=== PATIENT | female | born 1970 | race Caucasian/White ===

== ENCOUNTER 2020-05-07 11:47 | Outpatient (CLI) | payer OTHER, SELFPAY ==
--- NOTE | ~2020-05-07 | MMUS_ITS ---
EXAMINATION: MM diagnostic ej BI w tawanda, US breast BI complete HISTORY: Follow-up bilateral breast masses TECHNIQUE: Additional 3-D tomosynthesis images of the breasts were performed and synthetic 2-D images were generated. CAD analysis was submitted and interpreted. High resolution bilateral breast ultraso und was performed. COMPARISON: Comparison to multiple prior studies sequentially, with oldest reviewed study dated 10/20. BREAST PARENCHYMAL COMPOSITION: BREAST PARENCHYMAL COMPOSITION: The breasts are extremely dense, which lowers the sensitivity of mamm ography. FINDINGS: MAMMOGRAPHIC FINDINGS: There are multiple bilateral breast masses which are obscured by dense fibroglandular tissue. There a re multiple surgical clips in both breasts consistent with previous benign biopsies. ULTRASOUND: Bilateral breast ultrasound: There are multiple benign bilateral breast masses, most of which are sim ple and/or complicated cyst, largest on the right measures 2.9 cm a 11-12:00 and largest on the left measures 3.5 cm at 11:00. IMPRESSION: 1. Multiple benign-appearing bilateral breast masses. No evidence for malignancy. 2. Routine yearly screening mammogram and regular clinical breast examination are recommended. BI-RADS Category 2: Benign finding(s). Reviewed, dictated and finalized at location A. IMPRESSION: 1. Multiple benign-appearing bilateral breast masses. No evidence for malignanc y. 2. Routine yearly screening mammogram and regular clinical breast examination a re recommended. BI-RADS Category 2: Benign finding(s).
== END 2020-05-07 11:48 | disposition home or self-care (01) ==
LOC: ANHIMG 11:49
PROVIDERS: PCP Family Medicine; Visit Provider Nurse Practitioner Obstetrics & Gynecology
DX: N63.0 Unspecified lump in unspecified breast (principal)
CPT/HCPCS: 76641; 77062; 77066; G0279

== ENCOUNTER 2020-06-30 00:59 | Outpatient (CLI) | payer OTHER, SELFPAY ==
[2020-06-30 19:19] LABS: SARS-CoV-2 RNA PCR Negative
== END 2020-06-30 01:00 | disposition home or self-care (01) ==
LOC: ANHCOVIDDT 00:59
PROVIDERS: PCP Family Medicine; Visit Provider Internal Medicine Gastroenterology
DX: Z01.812 Encounter for preprocedural laboratory examination (principal); Z20.828 Contact with and (suspected) exposure to other viral communicable diseases
CPT/HCPCS: 87635; C9803; U0003

== ENCOUNTER 2020-07-02 00:05 | Day surgery (SDC) | payer OTHER, SELFPAY ==
[2020-06-25 14:35] VITALS: BMI 20.9
--- NOTE | 2020-07-01 16:54 | WPDANESEPP ---
Anes - Eval Pre Procedure Procedure: Operation Date: 07/02/20 07:30 Proposed Procedures p Screening Colonoscopy - Yang Tsang MD Date/Time: 07/01/20 16:54 Pre Op Diagnosis: neoplasm Screening Patient Data Age: 50 Gender: F Height: 5 ft 6 in Weight: 59 kg Allergies Allergy/AdvReac Type Severity Reaction Status Date / Time No Known Allergies Allergy Unverified 11/30/14 12:50 Home Medications Medication Instructions Recorded Confirmed Type No Home Medications 06/25/20 06/25/20 History Patient hx anesthesia problems: none Family hx anesthesia problems: none PMFSH Surgical History Surgical History Previous section Social History Social History Smoking status: Never smoker Substance use type: does not use Gender identity (if verbalized by the patient): Female Spiritual care concerns: No Exam Day of Procedure 07/01/20 16:54
[2020-07-02 06:29] VITALS: BP 110/50; PULSE 77; RESP 18; TEMP 36.9; O2SAT 100
[2020-07-02] MEDS: LACTATED RINGERS 1,000 ML 150 ML IV CONT (06:47)
--- NOTE | 2020-07-02 07:11 | WPDANESEPPF ---
Anes - Initial Pre Proc Eval Procedure: Operation Date: 07/02/20 07:30 Proposed Procedures p Screening Colonoscopy - Yang Tsang MD Date/Time: 07/02/20 07:11 Surgeon: Yang Tsang MD Pre Op Diagnosis: neoplasm Screening Patient Data Age: 50 Gender: F Height: 5 ft 6 in Weight: 59 kg Last Vital Signs Temp 98.5 F 07/02/20 06:29 Pulse 77 07/02/20 06:29 Resp 18 07/02/20 06:29 BP 110/50 L 07/02/20 06:29 Pulse Ox 100 07/02/20 06:29 Allergies Allergy/AdvReac Type Severity Reaction Status Date / Time No Known Allergies Allergy Unverified 07/02/20 06:23 Home Medications Medication Instructions Recorded Confirmed Type No Home Medications 06/25/20 06/25/20 History Patient hx anesthesia problems: none Family hx anesthesia problems: none PMFSH Past Medical History Medical History (Updated 07/02/20 @ 07:11 by Abdelrahman Nolan MD) Healthy adult Surgical History Surgical History Previous section Social History Social History Smoking status: Never smoker Substance use type: does not use Living arrangements: with family Gender identity (if verbalized by the patient): Female Sexual Orientation (if Verbalized by the Patient): Straight or Heterosexual Spiritual care concerns: No Anes - Eval Final PreProcedure Day of Procedure 07/02/20 07:11 Patient weight: normal Heart: regular rate and rhythm Lungs: clear to auscultation Airway: Mallampati scale class II Neurological: alert and oriented Last oral intake: >/= 8 hours ASA classification: I Emergent: no Anesthetic plan: proceed Anesthesia type and monitoring: general GIVS and standard monitoring Informed Consent: The patient's anesthetic plan and its attendant risks and benefits were discussed with the patient/family/POA. Questions were solicited and answers provided to the satisfaction of the patient/family/POA.
--- NOTE | 2020-07-02 07:29 | P.CONGI_ITS ---
Assessment and Plan Assessment and plan (1) Encounter for screening colonoscopy: Code(s): Z12.11 - Encounter for screening for malignant neoplasm of colon Status: Acute Additional Plan Patient presents for screening colonoscopy. She appears to be at average risk for colon polyps. Further recommendations will be given after endoscopy. GI Consult Note Consult date/time: 07/02/20 07:29 HPI: Sharyn Saini is a 50 year old female Seen in evaluation at the request of Dr.Eric Lee. patient presents for neoplasia screening. Her current weight appetite bowel movements are normal. She denies abdominal pain. She has had no blood in her stools. There is no family history of colon or rectal di sease. Review of Systems Review of Systems: All systems reviewed & are unremarkable except as noted in HPI and below PMFSH Past Medical History Medical History (Updated 07/02/20 @ 07:30 by Yang Tsang MD) Healthy adult Surgical History Surgical History Previous section Social History Social History Smoking status: Never smoker Substance use type: does not use Living arrangements: with family Gender identity (if verbalized by the patient): Female Sexual Orientation (if Verbalized by the Patient): Straight or Heterosexual Spiritual care concerns: No Meds Home Medications and Allergies Home Medications Medication Instructions Recorded Confirmed Type No Home Medications 06/25/20 06/25/20 History Allergies Allergy/AdvReac Type Severity Reaction Status Date / Time No Known Allergies Allergy Unverified 07/02/20 06:23 Vital Signs Vital Signs - 24 hr 07/02/20 06:29 Temperature 98.5 F Pulse Rate 77 Respiratory Rate 18 Blood Pressure 110/50 L Pulse Oximetry 100 Exam Narrative: Exam Narrative: Physical exam reveals Vital Signs to be stable. HEENT exam unremarkable. She is anicteric. Lungs are clear to auscultation and percussion. Heart is without murmur or extra sounds. Abdominal exam bowel sounds are present soft nontender with no organomegaly. Digital external rectal exam is normal.
[2020-07-02 07:50] VITALS: BP 83/36; PULSE 65; RESP 16; O2SAT 100
[2020-07-02 08:00] VITALS: BP 84/43; PULSE 59; RESP 16; O2SAT 100
[2020-07-02 08:10] VITALS: BP 89/43; PULSE 63; RESP 16; O2SAT 100
[2020-07-02 08:20] VITALS: BP 98/51; PULSE 73; RESP 18; O2SAT 100
== END 2020-07-02 08:31 | disposition home or self-care (01) ==
PROVIDERS: PCP Family Medicine; Visit Provider Internal Medicine Gastroenterology
PROC: 0DJD8ZZ Inspection of Lower Intestinal Tract, Via Natural or Artificial Opening Endoscopic (ICD-10-PCS; CPT 45378; principal; 2020-07-02 07:30)
DX: Z12.11 Encounter for screening for malignant neoplasm of colon (principal)
CPT/HCPCS: 45378; J2001; J2704; J7120

== ENCOUNTER 2023-04-03 03:52 | Day surgery (SDC) | payer OTHER, SELFPAY ==
[2023-03-26 12:43] VITALS: BMI 17.7
--- NOTE | 2023-03-26 12:45 | PC.NURSE ---
Report to the Outpatient Waiting Room, entrance under the green pavilion located off [facility], at time 0630 on date 04/03/23. Planned Procedure Time: 0830. Time changes happen often and if your time is changed the preop area will call you the afternoon before. - You and your visitor will be asked to self-screen and do not enter if you have any COVID symptoms. - A mask is optional within the hospital at this time. Patients may have clear liquids (water, carbonated beverages, clear teas, apple juice) until 3 hours prior to surgery with a maximum of 20 ounces. - No food from midnight until time of surgery Take the following medications with a SIP of water the morning of surgery: NONE DO NOT STOP ANY OF YOUR OTHER PRESCRIPTION MEDICATIONS PRIOR TO SURGERY ?EXCEPT THE FOLLOWING Medications to discontinue per physician: VITAMINS/SUPPLEMENTS Date to take last dose: 03/30/23 Please no make-up, nail lao, hairspray, perfume, deodorant, or body powder the day of surgery. No jewelry (including any body piercings) or valuables the day of surgery, leave them at home. Please take a shower or bath the night before, or the morning of, surgery with an antibacterial soap. Wear comfortable, loose fitting clothing. - Jewelry must be removed prior to entering the operating room. Rings and piercings that are not removed may be cut off. - The hospital will not accept responsibility for valuables. - Please leave all valuables, including medications, at home the day of surgery. If you are going home after surgery, a licensed bus driver/monitor must drive you home. - NO public transportation without another adult if you receive anesthesia. - We recommend that an adult stay with you for 24 hours following discharge. - We also recommend that you do not drive, make important decision, drink alcoholic beverages, or take any drugs that were not prescribed by your health care provider for at least 24 hours after your discharge time. Follow any additional instructions given to you from your surgeon. If you or anyone in your household have experienced Covid symptoms in the past week, please notify your surgeon or the nurse liaison at the phone number below for possible testing. Telephone instructions given to PT - LUIS ROWLEY and asked if any additional questions and then verbalized understanding. Patient advised to call surgeon office or pre surgery nurse liaison [phone] if any additional questions.
[2023-04-03 06:35] VITALS: BP 106/64; PULSE 69; RESP 20; TEMP 36.6; O2SAT 100
[2023-04-03] MEDS: ACETAMINOPHEN 500 MG TABLET 1000 MG PO (06:56)
[2023-04-03] MEDS: LACTATED RINGERS 1,000 ML 30 ML IV CONT ×2 (07:00→09:16)
--- NOTE | 2023-04-03 07:17 | P.PNAN_ITS ---
Anes - Initial Pre Proc Eval Procedure: Operation Date: 04/03/23 08:30 Proposed Procedures p Hysteroscopy Dilation and Curettage - Shaquille Tijerina MD Date/Time: 04/03/23 07:17 Surgeon: Shaquille Tijerina MD Pre Op Diagnosis: Abnormal Uterine Bleeding Patient Data Age: 52 Gender: F Height: 1.68 m Weight: 51.7 kg Last Vital Signs Temp 36.6 C 04/03/23 06:35 Pulse 69 04/03/23 06:35 Resp 20 04/03/23 06:35 BP 106/64 04/03/23 06:35 Pulse Ox 100 04/03/23 06:35 O2 Del Method Room Air 04/03/23 06:35 Allergies Allergy/AdvReac Type Severity Reaction Status Date / Time No Known Allergies Allergy Unverified 04/03/23 06:39 Home Medications Medication Instructions Recorded Confirmed Type cholecalciferol (vitamin D3) 25 25 mcg PO DAILY 02/20/23 04/03/23 History mcg (1,000 unit) capsule ferrous sulfate 325 mg (65 mg 325 mg PO DAILY 02/20/23 04/03/23 History iron) tablet Patient hx anesthesia problems: none Family hx anesthesia problems: none Results Review: All pre-operative results and documents have been reviewed as part of the pre- operative evaluation. [facility] Past Medical History Medical History Encounter for general adult medical examination without abnormal findings Encounter for screening colonoscopy Encounter for screening for lipoid disorders Healthy adult Iron deficiency anemia, unspecified Surgical History Surgical History Previous section Social History Social History Smoking status: Never smoker Alcohol intake: never Substance use: never Substance use type: does not use Living arrangements: with family Gender identity (if verbalized by the patient): Female Sexual Orientation (if Verbalized by the Patient): Straight or Heterosexual Spiritual care concerns: No Anes - Eval Final PreProcedure Day of Procedure 04/03/23 07:17 Patient weight: normal Heart: regular rate and rhythm Lungs: clear to auscultation Airway: Mallampati scale class 1 Neurological: alert and oriented Last oral intake: >/= 8 hours ASA classification: I Emergent: no Anesthetic plan: proceed Anesthesia type and monitoring: general GIVS and standard monitoring Results Review: All pre-operative results and documents have been reviewed as part of the pre- operative evaluation. Informed Consent: The patient's anesthetic plan and its attendant risks and benefits were discussed with the patient/family/POA. Questions were solicited and answers provided to the satisfaction of the patient/family/POA.
--- NOTE | 2023-04-03 07:22 | WPDANESEPPF ---
Anes - Initial Pre Proc Eval Procedure: Operation Date: 04/03/23 08:30 Proposed Procedures p Hysteroscopy Dilation and Curettage - Shaquille Tijerina MD Date/Time: 04/03/23 07:22 Surgeon: Shaquille Tijerina MD Pre Op Diagnosis: Abnormal Uterine Bleeding Patient Data Age: 52 Gender: F Height: 1.68 m Weight: 51.7 kg Last Vital Signs Temp 97.8 F 04/03/23 06:35 Pulse 69 04/03/23 06:35 Resp 20 04/03/23 06:35 BP 106/64 04/03/23 06:35 Pulse Ox 100 04/03/23 06:35 O2 Del Method Room Air 04/03/23 06:35 Allergies Allergy/AdvReac Type Severity Reaction Status Date / Time No Known Allergies Allergy Unverified 04/03/23 06:39 Home Medications Medication Instructions Recorded Confirmed Type cholecalciferol (vitamin D3) 25 25 mcg PO DAILY 02/20/23 04/03/23 History mcg (1,000 unit) capsule ferrous sulfate 325 mg (65 mg 325 mg PO DAILY 02/20/23 04/03/23 History iron) tablet Patient hx anesthesia problems: none Family hx anesthesia problems: none Results Review: All pre-operative results and documents have been reviewed as part of the pre-operative evaluation. [facility] Past Medical History Medical History Encounter for general adult medical examination without abnormal findings Encounter for screening colonoscopy Encounter for screening for lipoid disorders Healthy adult Iron deficiency anemia, unspecified Surgical History Surgical History Previous section Social History Social History Smoking status: Never smoker Alcohol intake: never Substance use: never Substance use type: does not use Living arrangements: with family Gender identity (if verbalized by the patient): Female Sexual Orientation (if Verbalized by the Patient): Straight or Heterosexual Spiritual care concerns: No Anes - Eval Final PreProcedure Day of Procedure 04/03/23 07:22 Patient weight: normal Heart: regular rate and rhythm Lungs: clear to auscultation Airway: Mallampati scale class II Neurological: alert and oriented Last oral intake: >/= 8 hours ASA classification: II Emergent: no Anesthetic plan: proceed Results Review: All pre-operative results and documents have been reviewed as part of the pre-operative evaluation. Informed Consent: The patient's anesthetic plan and its attendant risks and benefits were discussed with the patient/family/POA. Questions were solicited and answers provided to the satisfaction of the patient/family/POA.
--- NOTE | 2023-04-03 08:10 | WPDHPUPDATE1 ---
History and Physical Update Update Date/Time: 04/03/23 08:10 History and Physical has been reviewed, including an updated exam of the patient. There are NO changes in the patient's condition. Risks, benefits, and alternatives have been discussed and questions answered. Patient agrees to proceed with procedure.
[2023-04-03] MEDS: LIDOCAINE HCL 1% LOCAL INJ 20 ML VIAL 10 ML INFILTRATE (08:58)
[2023-04-03] MEDS: KETOROLAC 30 MG/ML VIAL (*BKC) IV PUSH (09:08)
[2023-04-03 09:20] VITALS: BP 89/53; PULSE 45; RESP 12; O2SAT 100
[2023-04-03 09:50] VITALS: BP 95/62; PULSE 54; RESP 16
--- NOTE | 2023-04-04 09:10 | W.PM.PROC2 ---
Procedure Note - Detailed Date of Procedure 04/04/23 Pre-op Diagnosis Abnormal Uterine Bleeding Post-op Diagnosis Same Procedure Performed Hysteroscopy D&C Surgeon Shaquille Tijerina MD Anesthesia MAC Indications abnormal uterine bleeding Findings Normal vulva, vagina, and cervix. Normal endometrial cavity Description of Procedure the patient was taken the operating room. She was prepped and draped in the dorsal lithotomy position after induction of mac anesthesia. A speculum was placed in the vagina. The cervix was grasped with a tenaculum. The cervix was dilated about 1 cm. The hysteroscope was inserted. The intrauterine cavity and endocervix were evaluated. Hysteroscope was withdrawn. A medium-size curette was used to curettage all the surfaces were within the endometrial cavity. the sample was collected on Telfa and sent to pathology. The hysteroscope was reinserted and the above findings were noted. Patient tolerated the procedure well. The speculum and tenaculum were removed. She was taken recovery room in stable condition. Sponge lap and needle counts were correct x2. Estimated Blood Loss 40 Drains No Packing No Pathology Yes Complications No immediate complications Condition Stable Disposition PACU
== END 2023-04-03 10:18 | disposition home or self-care (01) ==
PROVIDERS: PCP Family Medicine; Visit Provider Obstetrics & Gynecology
PROC: 0U5B8ZZ Destruction of Endometrium, Via Natural or Artificial Opening Endoscopic (ICD-10-PCS; CPT 58563; principal; 2023-04-03 08:30)
DX: N93.9 Abnormal uterine and vaginal bleeding, unspecified (principal); N84.0 Polyp of corpus uteri; D50.9 Iron deficiency anemia, unspecified
CPT/HCPCS: 58558; 88305; A9270; J1100; J1885; J2250; J2405; J2704; J3010; J7120

== ENCOUNTER 2023-05-01 00:38 | Day surgery (SDC) | payer OTHER, SELFPAY ==
--- NOTE | 2023-04-20 15:00 | PC.NURSE ---
Report to the Outpatient Waiting Room, entrance under the green pavilion located off [facility], at time 0900 on date 05/01/23. Planned Procedure Time: 1100. Time changes happen often and if your time is changed the preop area will call you the afternoon before. - You and your visitor will be asked to self-screen and do not enter if you have any COVID symptoms. - A mask is optional within the hospital at this time. Patients may have clear liquids (water, carbonated beverages, clear teas, apple juice) until 3 hours prior to surgery with a maximum of 20 ounces. - No food from midnight until time of surgery Take the following medications with a SIP of water the morning of surgery: NONE DO NOT STOP ANY OF YOUR OTHER PRESCRIPTION MEDICATIONS PRIOR TO SURGERY ?EXCEPT THE FOLLOWING Medications to discontinue per physician: VITAMINS/SUPPLEMENTS Date to take last dose: 04/27/23 Please no make-up, nail [place], hairspray, perfume, deodorant, or body powder the day of surgery. No jewelry (including any body piercings) or valuables the day of surgery, leave them at home. Please take a shower or bath the night before, or the morning of, surgery with an antibacterial soap. Wear comfortable, loose fitting clothing. - Jewelry must be removed prior to entering the operating room. Rings and piercings that are not removed may be cut off. - The hospital will not accept responsibility for valuables. - Please leave all valuables, including medications, at home the day of surgery. If you are going home after surgery, a licensed recycler forklift driver truck driver must drive you home. - NO public transportation without another adult if you receive anesthesia. - We recommend that an adult stay with you for 24 hours following discharge. - We also recommend that you do not drive, make important decision, drink alcoholic beverages, or take any drugs that were not prescribed by your health care provider for at least 24 hours after your discharge time. Follow any additional instructions given to you from your surgeon. If you or anyone in your household have experienced Covid symptoms in the past week, please notify your surgeon or the nurse liaison at the phone number below for possible testing. Telephone instructions given to PT - LUIS ROWLEY and asked if any additional questions and then verbalized understanding. Patient advised to call surgeon office or pre surgery nurse liaison [phone] if any additional questions.
[2023-04-20 15:03] VITALS: BMI 18.3
[2023-05-01] VITALS (8 sets, daily range): BP systolic 83–102; BP diastolic 50–61; PULSE 46–77; RESP 12–20; TEMP 36.2–36.7; O2SAT 99–100
--- NOTE | 2023-05-01 08:09 | P.PNAN_ITS ---
Anes - Eval Pre Procedure Procedure: Operation Date: 05/01/23 10:00 Proposed Procedures p Hysteroscopy with Rose Mary Endometrial Ablation - Shaquille Tijerina MD Date/Time: 05/01/23 08:09 Surgeon: Dr. Tijerina Pre Op Diagnosis: Menorrhagia Patient Data Age: 52 Gender: F Height: 1.68 m Weight: 51.7 kg Allergies Allergy/AdvReac Type Severity Reaction Status Date / Time No Known Allergies Allergy Unverified 04/20/23 15:00 Home Medications Medication Instructions Recorded Confirmed Type cholecalciferol (vitamin D3) 25 25 mcg PO DAILY 02/20/23 04/20/23 History mcg (1,000 unit) capsule ferrous sulfate 325 mg (65 mg 325 mg PO DAILY 02/20/23 04/20/23 History iron) tablet Patient hx anesthesia problems: none Family hx anesthesia problems: none Results Review: All pre-operative results and documents have been reviewed as part of the pre- operative evaluation. [facility] Past Medical History Medical History Encounter for general adult medical examination without abnormal findings Encounter for screening colonoscopy Encounter for screening for lipoid disorders Healthy adult Iron deficiency anemia, unspecified Surgical History Surgical History Previous section Social History Social History Smoking status: Never smoker Alcohol intake: never Substance use: never Substance use type: does not use Living arrangements: with family Gender identity (if verbalized by the patient): Female Sexual Orientation (if Verbalized by the Patient): Straight or Heterosexual Spiritual care concerns: No Exam Day of Procedure 05/01/23 08:09
[2023-05-01] MEDS: ACETAMINOPHEN 500 MG TABLET 1000 MG PO (09:26)
[2023-05-01] MEDS: LACTATED RINGERS 1,000 ML 30 ML IV CONT ×2 (09:31→10:55)
[2023-05-01 09:33] LABS: Hematocrit 32.9 % (37.0-47.0); Hemoglobin 9.9 g/dL (12.0-15.0)
--- NOTE | 2023-05-01 09:38 | P.PNAN_ITS ---
Anes - Eval Final PreProcedure Day of Procedure 05/01/23 09:38 Patient weight: normal Heart: regular rate and rhythm Lungs: clear to auscultation and normal air movement Airway: Mallampati scale class II Neurological: alert and oriented Last oral intake: >/= 8 hours ASA classification: II Emergent: no Anesthetic plan: proceed Anesthesia type and monitoring: general GIVS and standard monitoring Results Review: All pre-operative results and documents have been reviewed as part of the pre- operative evaluation. Informed Consent: The patient's anesthetic plan and its attendant risks and benefits were discussed with the patient/family/POA. Questions were solicited and answers provided to the satisfaction of the patient/family/POA.
--- NOTE | 2023-05-01 09:41 | WPDHPUPDATE1 ---
History and Physical Update Update Date/Time: 05/01/23 09:41 History and Physical has been reviewed, including an updated exam of the patient. There are NO changes in the patient's condition. Risks, benefits, and alternatives have been discussed and questions answered. Patient agrees to proceed with procedure.
--- NOTE | 2023-05-01 11:01 | P.OP_ITS ---
Procedure Note - Detailed Date of Procedure 05/01/23 Pre-op Diagnosis Menorrhagia Post-op Diagnosis Same Procedure Performed endometrial ablation with hysteroscopy d&c, diagnostic laparoscopy Surgeon Shaquille Tijerina MD Anesthesia MAC Indications Severe menorrhagia Findings Normal vulva vagina and cervix. Normal endometrium. narrow uterine cavity, diagnostic laparoscopy findings- enlarged fibroid uterus, endometriosis, scarring throughout the pelvis Description of Procedure The patient was taken to the operating room. She was prepped and draped in the dorsal lithotomy position after induction of mac anesthesia. A speculum was placed in the vagina. Cervix grasped with a tenaculum. The cervix was dilated to about 1 cm. The hysteroscope was inserted. The above findings were noted. Endometrial curettage was performed with a medium-size curette. All surfaces of the endometrium were affected by the curettage. The specimens were collected and sent to pathology. Measurements were taken of the uterus and cervix. The uterine length was then entered into the hand piece of the Rose Mary device. The device was inserted into the intrauterine cavity. The array of the device was expanded. The balloon cuff was inflated. A good seal was achieved. The energy and safety cycles were initiated and completed. The array was collapsed and the instrument was withdrawn after deflating the balloon cuff. Hysteroscope was reinserted. the endometrium was only partially treated. The right side was treated well without any on the left side. The array was reinserted an applied to the left side for approximately 1 minute of an energy cycle. Versus the usual 2 minute cycle. The instrument was withdrawn. Hysteroscope was inserted. Some of the muscularis could be visualized. Was not holding fluid well. There was concern about perforation and bowel injury. Hysteroscope was removed. Speculum was removed. [place] Diagnostic laparoscopy was performed - The patient was taken to the operating r oom. She was prepped and draped in the dorsal lithotomy position after induction general anesthesia. A 5 mm incision was made with a scalpel on the abdominal skin in the left upper quadrant of the abdomen. A 5 mm trocar was inserted into the intra-abdominal cavity under direct visualization the scope. In the same fashion a 5 mm left lower quadrant trocar was inserted and a 5 mm infraumbilical trocar was inserted. The pelvis was inspected. There were no injuries visualized. The rectum and bowel appeared normal. There were no perforation of the uterus. The pneumoperitoneum was reduced. The trocars were removed. Skin was closed with subcuticular 4 micro. The patient's incisions were covered with Dermabond. She was taken recovery room in stable condition. Sponge lap and needle counts were correct x2. Above findings were noted. The hysteroscope was removed. The patient tolerated the procedure well. The speculum and tenaculum were removed. She was taken to recovery in stable condition. Sponge lap and needle counts were correct x2. Estimated Blood Loss 15 Pathology Yes Complications No immediate complications Condition Stable Disposition Same day
[2023-05-01] MEDS: fentaNYL CITRATE INJ (*CRX) 100 MCG/2 ML VIAL 25 MCG IV PUSH ×3 (11:16→12:20)
--- NOTE | 2023-05-01 11:25 | SUR.PHASEI ---
1125: Simple mask removed.
[2023-05-01] MEDS: oxyCODONE HCL (*CRX) 5 MG TAB IR PO (11:56)
== END 2023-05-01 13:02 | disposition home or self-care (01) ==
PROVIDERS: Anesthesiology; PCP Family Medicine; Visit Provider Obstetrics & Gynecology
PROC: 0U5B8ZZ Destruction of Endometrium, Via Natural or Artificial Opening Endoscopic (ICD-10-PCS; CPT 58563; principal; 2023-05-01 10:00)
DX: N92.0 Excessive and frequent menstruation with regular cycle (principal); D25.9 Leiomyoma of uterus, unspecified; N80.9 Endometriosis, unspecified; D50.9 Iron deficiency anemia, unspecified
CPT/HCPCS: 58563; 49320; 36415; 85014; 85018; A9270; J1100; J2250; J2405; J2704; J3010; J7120

== ENCOUNTER 2024-01-09 13:34 | Outpatient (CLI) | payer OTHER, SELFPAY ==
[2024-01-09 14:15] LABS: Hematocrit 39.1 % (37.0-47.0); Hemoglobin 12.6 g/dL (12.0-15.0)
== END 2024-01-09 13:35 | disposition home or self-care (01) ==
LOC: ANHSURGERY 13:37
PROVIDERS: Anesthesiology; PCP Family Medicine; Visit Provider Obstetrics & Gynecology
DX: N92.0 Excessive and frequent menstruation with regular cycle (principal); D50.9 Iron deficiency anemia, unspecified; Z01.818 Encounter for other preprocedural examination
CPT/HCPCS: 36415; 85014; 85018; 86850; 86900; 86901

== ENCOUNTER 2024-01-16 00:31 | Day surgery (SDC) | payer OTHER, SELFPAY ==
[2024-01-04 12:37] VITALS: BMI 17.7
--- NOTE | 2024-01-04 12:40 | PC.NURSE ---
Report to the Outpatient Waiting Room, entrance under the green pavilion located off [facility], at time 8:30 on date 01/16/24. Planned Procedure Time: 10:30. Time changes happen often and if your time is changed the preop area will call you the afternoon before. - You and your visitor will be asked to self-screen and do not enter if you have any COVID symptoms. - A mask is optional within the hospital at this time. Patients may have clear liquids (water, carbonated beverages, clear teas, apple juice) until 3 hours prior to surgery (7:30) with a maximum of 20 ounces. - No food from midnight until time of surgery Take the following medications with a SIP of water the morning of surgery: NONE DO NOT STOP ANY OF YOUR OTHER PRESCRIPTION MEDICATIONS PRIOR TO SURGERY ?EXCEPT THE FOLLOWING Medications to discontinue per physician: VITAMINS/SUPPLEMENTS Date to take last dose: 01/12/24 Please no make-up, nail [facility] [place], hairspray, perfume, deodorant, or body powder the day of surgery. No jewelry (including any body piercings) or valuables the day of surgery, leave them at home. Please take a shower or bath the night before, or the morning of, surgery with an antibacterial soap. Wear comfortable, loose fitting clothing. - Jewelry must be removed prior to entering the operating room. Rings and piercings that are not removed may be cut off. - The hospital will not accept responsibility for valuables. - Please leave all valuables, including medications, at home the day of surgery. If you are going home after surgery, a licensed professional driver must drive you home. - NO public transportation without another adult if you receive anesthesia. - We recommend that an adult stay with you for 24 hours following discharge. - We also recommend that you do not drive, make important decision, drink alcoholic beverages, or take any drugs that were not prescribed by your health care provider for at least 24 hours after your discharge time. Follow any additional instructions given to you from your surgeon. If you or anyone in your household have experienced Covid symptoms in the past week, please notify your surgeon or the nurse liaison at the phone number below for possible testing. Telephone instructions given to PT - LUIS and asked if any additional questions and then verbalized understanding. Patient advised to call surgeon office or pre surgery nurse liaison [phone] if any additional questions.
[2024-01-16] VITALS (15 sets, daily range): BP systolic 99–111; BP diastolic 48–64; PULSE 53–94; RESP 11–18; TEMP 36.3–36.9; O2SAT 97–100; BMI 17.6
--- NOTE | 2024-01-16 09:24 | P.PNAN_ITS ---
Anes - Initial Pre Proc Eval Procedure: Operation Date: 01/16/24 10:30 Proposed Procedures p Total Laparoscopic Hysterectomy with Bilateral Salpingo-oophorectomy - Shaquille Tijerina MD Date/Time: 01/16/24 09:24 Surgeon: Shaquille Tijerina MD Pre Op Diagnosis: Menorrhagia Patient Data Age: 53 Gender: F Height: 1.68 m Weight: 49.9 kg Allergies Allergy/AdvReac Type Severity Reaction Status Date / Time No Known Allergies Allergy Verified 01/16/24 09:24 Home Medications Medication Instructions Recorded Confirmed Type cholecalciferol (vitamin D3) 25 25 mcg PO DAILY 02/20/23 01/16/24 History mcg (1,000 unit) capsule ferrous sulfate 325 mg (65 mg 325 mg PO DAILY 02/20/23 01/16/24 History iron) tablet Patient hx anesthesia problems: none Family hx anesthesia problems: none Results Review: All pre-operative results and documents have been reviewed as part of the pre- operative evaluation. [facility] Past Medical History Medical History Encounter for general adult medical examination without abnormal findings Encounter for screening colonoscopy Encounter for screening for lipoid disorders Healthy adult Iron deficiency anemia, unspecified Surgical History Surgical History Previous section Social History Social History Smoking status: Never smoker Alcohol intake: never Substance use: never Substance use type: does not use Living arrangements: with family Gender identity (if verbalized by the patient): Female Sexual Orientation (if Verbalized by the Patient): Straight or Heterosexual Spiritual care concerns: No Anes - Eval Final PreProcedure Day of Procedure 01/16/24 09:24 Patient weight: normal Heart: regular rate and rhythm Lungs: clear to auscultation Airway: Mallampati scale Neurological: alert and oriented Last oral intake: >/= 8 hours ASA classification: I Emergent: no Anesthetic plan: proceed Anesthesia type and monitoring: general and standard monitoring Results Review: All pre-operative results and documents have been reviewed as part of the pre- operative evaluation. Informed Consent: The patient's anesthetic plan and its attendant risks and benefits were discussed with the patient/family/POA. Questions were solicited and answers provided to the satisfaction of the patient/family/POA.
[2024-01-16] MEDS: KETOROLAC 15 MG/ML VIAL (*BKC) IV PUSH (09:34)
[2024-01-16] MEDS: LACTATED RINGERS 1,000 ML 30 ML IV CONT ×3 (09:34→15:23)
[2024-01-16] MEDS: ACETAMINOPHEN 500 MG TABLET 1000 MG PO (09:34)
--- NOTE | 2024-01-16 09:34 | WPDHPUPDATE1 ---
History and Physical Update Update Date/Time: 01/16/24 09:34 History and Physical has been reviewed, including an updated exam of the patient. There are NO changes in the patient's condition. Risks, benefits, and alternatives have been discussed and questions answered. Patient agrees to proceed with procedure.
[2024-01-16] MEDS: ceFAZolin 2 GM/D5W 50 ML 2 GM/50 ML BAG IVPB (10:20)
[2024-01-16] MEDS: ceFAZolin SODIUM 1 GM VIAL (11:43)
[2024-01-16] MEDS: METHYLENE BLUE 0.5% INJ 10 ML AMPULE IRRIGATION ×2 (12:47)
[2024-01-16] MEDS: ePHEDrine sulfate INJ 50 MG/ML AMPUL 10 MG IV PUSH ×3 (14:14→14:18)
--- NOTE | 2024-01-16 14:26 | W.PM.PROC2 ---
Procedure Note - Detailed Date of Procedure 01/16/24 Pre-op Diagnosis Menorrhagia Post-op Diagnosis Same Procedure Performed Total laparoscopic hysterectomy and bilateral salpingo-oophorectomy. 1 hour adhesiolysis. Surgeon Shaquille Tijerina MD Anesthesia General Indications Menorrhagia Findings diffuse scar tissue throughout both adnexa and posteriorly between the rectum and the cervix. Posterior cul-de-sac was obliterated. Normal-appearing tubes and ovaries. Description of Procedure This patient was taken to the operating room. She was prepped and draped in the dorsal lithotomy position after induction of general anesthesia. The uterine manipulator and Lorenzo cup were placed. This was done with a speculum and tenaculum. The speculum was placed. The cervix was grasped with a tenaculum. The stay sutures were placed at 3 and 9:00 a.m.. The stay sutures of 0 Vicryl were brought through the appropriately sized Lorenzo cup. The tip of the JASSON manipulator was placed in the intrauterine cavity. The cup was slid into place around the cervix and into the fornices. It was locked into place. The sutures were then wrapped around the handle and tied under tension. A 5 mm skin incision was made in the left upper quadrant the abdomen. A 5 mm trocar was inserted into the intrauterine cavity under direct visualization of the scope. Pneumoperitoneum was achieved. A left lower quadrant 11 mm incision was made with scalpel. An 11 mm trocar was inserted into the anterior abdominal cavity under direct visualization the scope. A 5 mm infraumbilical incision was made with a scalpel and a 5 mm trocar was inserted the intra-abdominal cavity under direct visualization of the scope. 1 hour of adhesiolysis was performed. Adhesiolysis was performed the bilateral adnexa and in the posterior cul-de-sac. The rectum was adherent to the cervix. Dissected the rectum was complete an endometrioma had been encountered. There was a similar area to the content with stool. There was concern about a rectal injury. Dr. Ervin from general surgery was called. He performed an evaluation of the rectum. It was believed to be intact. defect was noted. Please see his note for details on the procedure. Bilateral ureteral lysis was performed. This was done from the pelvic brim down to the uterine artery. This was done with careful dissection using sharp and blunt dissection. The infundibulopelvic ligaments were isolated after identification of the ureters bilaterally. These infundibulopelvic ligaments were cauterized and transected with LigaSure cautery. The para ovarian tissue was cauterized and transected with LigaSure cautery bilaterally. Moving around the ovary into the broad ligament the tissue was cauterized transected with LigaSure cautery. The round ligaments were cauterized transected with LigaSure cautery this was all done in a bilateral fashion. In a stepwise fashion along the lateral aspects of the uterus the round ligament and broad ligaments were cauterized transected down to the level of the uterine arteries. A bladder flap was created in the bladder was moved distally to the end of the cervix and over the Lorenzo cup. The bilateral uterine arteries were cauterized and transected. Colpotomy was then performed. In a circumferential fashion the vagina was transected using unipolar cautery. The incision was made down on the Lorenzo cup. The uterus, cervix, fallopian tubes and ovaries were taken out through the vagina. A pneumo occluder was placed in the vagina. The vaginal cuff was closed with a 0 V lock suture in a running fashion. The pelvis was irrigated with copious amounts antibiotic irrigation. The ureters were again examined and found to be intact and flowing freely under the uterine arteries into the bladder. Break and the vaginal mucosa was closed with a 0 Vicryl and 3-0 Vicryl. Break in the vaginal mucosa occurred with removal of the uterus. Cystoscopy wa
[2024-01-16] MEDS: fentaNYL CITRATE INJ (*CRX) 100 MCG/2 ML VIAL 25 MCG IV PUSH ×8 (15:15→16:15)
--- NOTE | 2024-01-16 17:08 | W.PM.PROC2 ---
Procedure Note - Detailed Date of Procedure 01/16/24 Pre-op Diagnosis Menorrhagia Post-op Diagnosis Same Procedure Performed Rectal evaluation under anesthesia and rigid proctosigmoidoscopy Surgeon David Ervin MD Anesthesia General Indications patient is a 53-year-old female who was undergoing a laparoscopic hysterectomy by Dr. Tijerina today. During his surgery he was concerned that he had made a perforation the wall the rectum due to the dense adhesions in the area. I was asked to come emergently to the operating room to perform intraoperative consult and evaluate for possible rectal injury. Findings Upon laparoscopic visualization of the area of suspected perforation by Dr. Tijerina I could not see any obvious defect through the muscularis and mucosa of the proximal rectum. I then performed a rigid proctosigmoidoscopy and performed an air leak test as well as instilling methylene blue saline solution into the rectum and did not find any evidence of perforation. Description of Procedure I was called emergently to come to the operating room for an intraoperative consult by Dr. Tijerina. He was concerned he may have caused a perforation in the wall of the proximal rectum with his dissection during his laparoscopic hysterectomy. When I entered the operating room the patient was already under general endotracheal anesthesia in lithotomy position in stable condition. I 1st reviewed the area of suspected perforation on the video screen as Dr. Tijerina showed me where he witnessed what he thought might be feculent coming from the left anterior lateral portion of the proximal rectum. I could not see any definite defect in the wall the rectum on the video screen. I then scrubbed into the procedure and proceeded to perform a rectal evaluation under anesthesia. A lighted rigid sigmoidoscope was then introduced into the anal canal lubrication. I then insufflated and advanced the rigid sigmoidoscope initially to about 6 to 8 cm and then encountered some hard stool. I then performed irrigation and evacuation the stool with the size suction through the rigid sigmoidoscope. I had to do this multiple times to get the solid stool out so I could evaluate the distal sigmoid colon and rectum. Once I had done that could see the mucosa circumferentially I gradually removed the sigmoidoscope and performed a circumferential evaluation of the distal sigmoid and rectum. I did not see any obvious defects. I then made sure that the tip of the sigmoidoscope was distal to the area suspected perforation. Dr. Tijerina then proceeded to occlude sigmoid colon laparoscopically and then I insufflated air into the rectum and sigmoid colon while the area suspected perforation was under saline solution in the pelvis. With rather vigorous insufflation we did not see any air bubbles leaking from the wall of the rectum. This appeared to confirm a negative leak test. I then checked a 2nd white by instilling methylene blue colored saline solution into the distal rectum. approximately 50 to 75 cc of this fluid was placed into the rectum and then again insufflated and did not see any evidence of methylene blue staining of the wall of the proximal rectum. At this point I felt comfortable same that there did not appear to be any perforation of the proximal rectum. I then aspirated the fluid and air from the rectum and then terminated my portion of the procedure. The patient was then left in the operating room under the care of Dr. Tijerina to finish his portion of the surgery. Estimated blood loss during the rectal evaluation anesthesia and rigid proctosigmoidoscopy was minimal. All sponge, instruments, needles counts will be deferred to the procedure for Dr. Tijerina to confirm. The patient was left in the operating room under the care Dr. Aguirre stable condition. Implants None Estimated Blood Loss 2 Complications No immediate complications Condition Stable Disposition PACU [facility]
[2024-01-16] MEDS: HYDROcodone/acetaminophen (*CRX) 5-325 MG TABLET 1 TAB PO (18:49)
[2024-01-16] MEDS: DEXTROSE 5%/0.45% SOD CHL 1,000 ML 125 ML IV CONT (18:49)
[2024-01-16] MEDS: SIMETHICONE 80 MG TAB.CHEW PO (18:49)
[2024-01-16] MEDS: KETOROLAC 30 MG/ML VIAL (*BKC) IV PUSH (20:30)
--- NOTE | 2024-01-16 20:52 | OBPPTRN ---
1709 Patient transferred to post room #287 via bed. Support person present. Oriented to unit, room, information board, rooming in, admission packet and security measures. Patient verbalizes understanding.
[2024-01-17 00:05] VITALS: BP 99/52; PULSE 78; RESP 16; TEMP 36.8; O2SAT 100
[2024-01-17 04:07] VITALS: BP 101/58; PULSE 82; RESP 18; TEMP 36.9
[2024-01-17] MEDS: IBUPROFEN 600 MG TABLET PO ×2 (04:07→11:15)
[2024-01-17] MEDS: HYDROcodone/acetaminophen (*CRX) 10-325 MG TABLET 1 TAB PO (04:07)
--- NOTE | 2024-01-17 08:08 | WPDANESPN ---
Anes - Prog Note Post-Op Date/Time: 01/17/24 08:08 Vital Signs: Last Vital Signs Temp 36.9 C 01/17/24 04:07 Pulse 82 01/17/24 04:07 Resp 18 01/17/24 04:07 BP 101/58 L 01/17/24 04:07 Pulse Ox 100 01/17/24 00:05 O2 Del Method Room Air 01/17/24 00:05 O2 Flow Rate 8 01/16/24 14:30 Pain Score (VAS): 2 I/O: Intake & Output 01/16/24 01/17/24 01/17/24 23:59 07:59 15:59 Intake Total 1200 1500 Output Total 180 1225 Balance 1020 275 Patient Feedback: Patient satisfied with anesthetic care.
--- NOTE | 2024-01-17 08:39 | PM.GYNPNOP ---
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 David Tijerina MD s Evaluation under anesthesia, Rigid Proctosigmoidoscopy Not Applicable David Ervin MD Postoperative day: 1 Postoperative status: doing well and other (Tollerating Regular Diet) Postoperative plan: routine post-op care and discharge Time Spent With Patient Time: Total time spent is greater than 50% in coordination of care (as documented) at patient's floor/unit and/or counseling patient: Time with patient: 15 - 25 minutes [employer] HELPER- PN:Subj Post-Op Subjective Date/time seen: 01/17/24 08:39 Subjective: patient reports feeling better, pain is well controlled and patient is tolerating oral intake Exam Const: General: cooperative, healthy appearing, comfortable and no acute distress Resp: Auscultation: no crackles, no rales, no rhonchi and no wheezes Cardio: Rhythm: regular rhythm Heart sounds: no click and no murmurs GI: Inspection: non-distended Auscultation: normal bowel sounds Other: Incisions - CDI Extrem: General: normal to inspection, no pedal edema and no calf tenderness [employer] HELPER - PN: Obj Data Vital Signs Vital Signs: Vital Signs - 24 hr 01/16/24 09:25 01/16/24 14:09 01/16/24 14:20 Temperature 98.4 F 97.4 F L Pulse Rate 61 62 53 L Respiratory Rate 16 12 11 L Blood Pressure 101/55 L 101/51 L 105/52 L Pulse Oximetry 100 100 100 Oxygen Delivery Room Air Simple Face Mask Simple Face Mask Oxygen Flow Rate 8 8 01/16/24 14:30 01/16/24 14:45 01/16/24 15:00 Temperature Pulse Rate 83 82 81 Respiratory Rate 12 16 17 Blood Pressure 103/52 L 111/52 L 105/53 L Pulse Oximetry 100 100 100 Oxygen Delivery Simple Face Mask Room Air Room Air Oxygen Flow Rate 8 01/16/24 15:15 01/16/24 15:30 01/16/24 15:45 Temperature Pulse Rate 80 89 81 Respiratory Rate 15 12 13 Blood Pressure 101/51 L 107/50 L 109/52 L Pulse Oximetry 100 100 100 Oxygen Delivery Room Air Room Air Room Air Oxygen Flow Rate 01/16/24 16:00 01/16/24 16:15 01/16/24 16:30 Temperature Pulse Rate 75 70 64 Respiratory Rate 13 12 14 Blood Pressure 108/55 L 103/57 L 99/48 L Pulse Oximetry 97 100 99 Oxygen Delivery Room Air Room Air Room Air Oxygen Flow Rate 01/16/24 16:45 01/16/24 19:00 01/16/24 19:00 Temperature 97.9 F Pulse Rate 70 85 Respiratory Rate 13 18 Blood Pressure 104/48 L 99/55 L Pulse Oximetry 100 100 Oxygen Delivery Room Air Room Air Oxygen Flow Rate 01/16/24 17:07 01/16/24 17:07 01/17/24 00:05 Temperature 97.4 F L 98.2 F Pulse Rate 94 78 Respiratory Rate 16 16 Blood Pressure 110/64 99/52 L Pulse Oximetry 100 100 Oxygen Delivery Room Air Oxygen Flow Rate 01/17/24 00:05 01/17/24 04:07 Temperature 98.5 F Pulse Rate 82 Respiratory Rate 18 Blood Pressure 101/58 L Pulse Oximetry Oxygen Delivery Room Air Oxygen Flow Rate Intake/Output Intake/Output: Intake & Output 01/14/24 01/15/24 01/16/24 01/17/24 23:59 23:59 23:59 23:59 Intake Total 1750 1500 Output Total 180 1225 Balance 1570 275 Meds/Results Medications: Active Medications Generic Name Dose Route Start Last Admin Trade Name Freq PRN Reason Stop Dose Admin Hydrocodone Bitart/Acetaminophen 1 tab 01/16/24 17:06 01/16/24 18:49 Hydrocodone/Acetaminophen (*Crx) 5-325 Mg Tablet PO 1 tab Q3H PRN Administration Pain Rated 5 or Less Hydrocodone Bitart/Acetaminophen 1 tab 01/16/24 17:06 01/17/24 04:07 Hydrocodone/Acetaminophen (*Crx) 10-325 Mg Tablet PO 1 tab Q3H PRN Administration Pain Rated 6 or Greater Ibuprofen 600 mg 01/16/24 17:06 01/17/24 04:07 Ibuprofen 600 Mg Tablet PO 600 mg Q6H PRN Administration Cramping Ketorolac Tromethamine 30 mg 01/16/24 17:06 01/16/24 20:30 Ketorolac 30 Mg/Ml Vial (*Bkc) IV PUSH
[2024-01-17 08:40] VITALS: BP 100/48; PULSE 68; RESP 18; TEMP 37.2; O2SAT 100
[2024-01-17] MEDS: SIMETHICONE 80 MG TAB.CHEW PO (08:45)
[2024-01-17] MEDS: HYDROcodone/acetaminophen (*CRX) 5-325 MG TABLET 1 TAB PO (08:45)
== END 2024-01-17 11:45 | disposition home or self-care (01) ==
LOC: ANHSURGERY 08:48 → ANHOB2 17:14
PROVIDERS: Surgery; PCP Family Medicine; Visit Provider Obstetrics & Gynecology
PROC: 0UT9FZZ Resection of Uterus, Via Natural or Artificial Opening With Percutaneous Endoscopic Assistance (ICD-10-PCS; CPT 58571; principal; 2024-01-16 10:30)
PROC: 0DJD8ZZ Inspection of Lower Intestinal Tract, Via Natural or Artificial Opening Endoscopic (ICD-10-PCS; CPT 45300; 2024-01-16 10:30)
DX: N92.0 Excessive and frequent menstruation with regular cycle (principal); N80.00 Endometriosis of the uterus, unspecified; N73.6 Female pelvic peritoneal adhesions (postinfective); N72 Inflammatory disease of cervix uteri; N80.03 Adenomyosis of the uterus; D25.2 Subserosal leiomyoma of uterus; N80.101 Endometriosis of right ovary, unspecified depth; N83.02 Follicular cyst of left ovary; N88.8 Other specified noninflammatory disorders of cervix uteri; D50.9 Iron deficiency anemia, unspecified; Z98.890 Other specified postprocedural states; Z80.3 Family history of malignant neoplasm of breast; Z80.0 Family history of malignant neoplasm of digestive organs
CPT/HCPCS: 58571; 45317; 36415; 85014; 85018; 86850; 86900; 86901; 88307; 99199; A9270; J0690; J1100; J1170; J1885; J2250; J2405; J2704; J3010; J7030; J7120; Q9968